=== PATIENT | male | born 1990 | race Caucasian/White ===

== ENCOUNTER 2016-09-01 16:04 | Emergency (ER) | payer OTHER ==
[~2016-09-01] VITALS: Ht 182.9 cm; Wt 93.2 kg
[~2016-09-01 16:04] MED LIST: IBUP800T28 PO; OXYC1TAB24 PO
[2016-09-01 16:18] VITALS: BP 102/67; PULSE 79; RESP 16; O2SAT 99
--- NOTE | 2016-09-01 17:27 | ED.REPORT ---
HPI-Dental/Mouth Prob Date of Service Sep 01, 2016 ED Provider: Diego Tello PA-C Otherwise healthy 25-year-old male presents with chief complaint of right upper tooth pain. Patient states this become increasingly painful over the last week. Denies discharge, foul taste. States that he has an appointment to have a root canal approximately one month. He finds the pain unbearable. Admits fever, chills, sweats, abdominal pain, vomiting, malaise. Nursing Notes Stated Complaint: TOOTHACHE/HEADACHE Chief Complaint: Dental Nursing Notes Reviewed: Yes Allergies: Coded Allergies: amoxicillin (Verified Allergy, Severe, Anaphylaxis, 09/01/16) Pt hasn't taken any since he was young Uncoded Allergies: CILLIN FAMILY (Allergy, Severe, 08/11/14) Pt sister reports the whole family has allery to the cillin family Scheduled PRN oxyCODONE (oxyCODONE) 5 Mg Tablet 5 MG PO Q4H PRN PRN For Pain General Time Seen by MD: 17:06 Chief Complaint Tooth pain Past Medical History Smoking History Light Tobacco Smoker Social History Alcohol Use: Denies alcohol use Drug Use: Meth, Other Ambulatory Status Independent Review of Systems Review of Systems Note: Negative unless stated otherwise in history of present illness Physical Exam General: Well appearing, well developed, well nourished, no acute distress. Mouth: Large carry in the third molar. Tender to percussion. No redness, swelling, discharge. No swelling or abscess noted. Head: Atraumatic, normocephalic. Eyes: No scleral icterus or injection. No discharge. Vision grossly intact. ENT: Voice clear, hearing grossly intact. Respiratory: No respiratory distress, no increased work of breathing. Speaks in complete sentences. Skin: Warm and dry. Neurological: Grossly nonfocal. Psychological: alert and oriented. Speech appropriate, linear and logical. Behavior appropriate. Initial Vital Signs Vital Signs (First) Date Time Temp Pulse Resp B/P Pulse Ox O2 Delivery O2 Flow Rate FiO2 09/01/16 16:18 37.0 79 16 102/67 99 Room Air Initial VS: Reviewed, Vital signs normal Procedures Dental Nerve Block Time: 17:49 Block Performed by: Allied health pract Consent / Setup / Site Prep: Informed consent provided, Hand hygiene observed Anesthesia: Infraorbital block Local Anesthesia: Lidocaine 1% (1 mL), 27g needle, Other (2 mL Sensorcaine 0.5%) Post-Procedure / Complications: No complications, Tolerated procedure well, Patient stable, No bleeding Re-Eval/Medical Decision Med Decision/Clinical Course Otherwise healthy 25-year-old male presents complaining of pain centered around a large obvious carry in his third tooth, which is tender to percussion. No redness, swelling, discharge suggestive of dental abscess or indication of systemic infection. Patient is handling secretions well has no difficulty speaking or swallowing. Patient initially declined a dental block, but reconsidered at discharge. Anesthesia was obtained with an infraorbital block. Advised [id number] analgesia and further the small amount of oxycodone to supplement. Advised primary care follow-up and contacting his dentist to try to get an earlier appointment. Provided return precautions. Discharge & Departure Primary Impression: Toothache Disposition: Home Discharge Condition All VS Reviewed: Yes Condition: Stable Patient Instructions: Dental Caries (ED) Additional Instructions: Evaluation for tooth pain in the emergency department. Physical reveals a large cavity in the right upper tooth, which is likely causing your pain. I do not see indication of infection however there is no redness, swelling, or discharge. Avoid very hot, very cold or very crunchy foods. The pain is best treated with 600 mg of ibuprofen (Advil, Motrin) every 6 hours, or 1000 mg of acetaminophen (Tylenol) every 6 hours. These drugs can be taken at the same time for more severe pain. I will also give you a prescription for a small amount of oxycodone to use to supplement these other 2 medications as needed. He is not operated vehicle or drink alcohol within 4 hours of taking oxycodone. I will provide a referral for primary care provider should you need follow-up for additional pain control. Contact your dentist to see if you can arrange an earlier appointment. Return to emergency department for new or worsening symptoms including increasing pain, discharge, fever, chills, feeling ill. Referrals: [facility] Provider for APC: Omar Mirza MD,Diego NGUYEN Sep 01, 2016 17:27
[2016-09-01] MEDS ORDERED: OXYC5TAB72 PO (17:28)
[2016-09-01] MEDS ORDERED: Bupivacaine 0.5%/EPI 50 mL Inj ONE (17:44)
[2016-09-01 17:55] VITALS: BP 102/67; PULSE 79; RESP 16; O2SAT 99
== END 2016-09-01 17:55 | disposition home or self-care (01) ==
LOC: SED 16:04
DX: K08.89 Other specified disorders of teeth and supporting structures (principal); F17.200 Nicotine dependence, unspecified, uncomplicated; Z88.0 Allergy status to penicillin; Z88.1 Allergy status to other antibiotic agents